=== PATIENT | female | born 1950 | race Caucasian/White ===

== ENCOUNTER 2020-08-22 17:42 | Inpatient (IN) | payer MEDICARE, OTHER ==
[~2020-08-22] VITALS: Ht 162.6 cm; Wt 113.9 kg
--- NOTE | 2020-08-22 17:30 | NUR ---
received by to room 1114a.o2 on at 2 l/nc.oriented to room and surroundings.cl in reach.
--- NOTE | 2020-08-22 20:00 | NUR ---
ADMIT FOR PHYSICAL REHAB AND SERVICES OF DR EDWARDS. AWAKE AND ALERT. RESPIRATIONS UNLABORED. O2/3L ON PER NASAL CANNULA AND USES CPAP AT NIGHT. ORIENTED TO ROOM AND CALL LIGHT USES. VOICES UNDERSTANDING. CALL LIGHT IN REACH.
[2020-08-22 22:00] VITALS: BP 150/89
[2020-08-22 22:46] VITALS: BP 150/89; BMI 43.2
[2020-08-23] MEDS ORDERED: PROTONIX40 MG PO (03:14)
[2020-08-23] MEDS ORDERED: GUAIFENESI100 MG/5 M PO (03:16)
[2020-08-23] MEDS ORDERED: HUMALOG 30100 UNITS/ SQ (03:19)
[2020-08-23] MEDS ORDERED: PULMICORT0.5 MG/21 INH (03:21)
[2020-08-23] MEDS ORDERED: PERFOROMIS20 MCG/21 INH (03:21)
[2020-08-23] MEDS ORDERED: HUMALOG 30100 UNITS/ SC (03:21)
[2020-08-23] MEDS ORDERED: COZAAR100 MG PO (03:22)
[2020-08-23] MEDS ORDERED: CYMBALTA60 MG PO (03:22)
[2020-08-23] MEDS ORDERED: ASPIRIN81 MG PO (03:22)
[2020-08-23] MEDS ORDERED: DITROPAN XL 1010 MG PO (03:23)
[2020-08-23] MEDS ORDERED: LOVENOX40 MG/0.4 SC (03:24)
[2020-08-23] MEDS ORDERED: NAMENDA10 MG PO (03:24)
[2020-08-23] MEDS ORDERED: TESSALON PERLE100 MG PO (03:25)
[2020-08-23] MEDS ORDERED: TOPAMAX50 MG PO (03:26)
[2020-08-23] MEDS ORDERED: DONEPEZIL HCL10 MG (03:27)
[2020-08-23] MEDS ORDERED: LANTUS SOL100 UNIT/2 SC (03:27)
[2020-08-23] MEDS ORDERED: SINGULAIR10 MG PO (03:28)
[2020-08-23] MEDS ORDERED: NORVASC10 MG PO (03:28)
[2020-08-23] MEDS ORDERED: ZOCOR40 MG PO (03:29)
[2020-08-23] MEDS ORDERED: HYDRALAZINE HCL25 MG PO (03:31)
[2020-08-23] MEDS ORDERED: IPRAT-ALBUT 0.5-3 ML UPD (03:32)
[2020-08-23] MEDS ORDERED: BUTALB-APAP-CA1 EACH PO (03:32)
[2020-08-23] MEDS ORDERED: MIRALAX17 GM PO (03:33)
[2020-08-23] MEDS ORDERED: ACETAMINOPHEN325 MG PO (03:36)
[2020-08-23] MEDS ORDERED: ZOFRAN4 MG PO (03:37)
[2020-08-23] MEDS ORDERED: ULTRAM50 MG PO (03:37)
--- NOTE | 2020-08-23 05:17 | NUR ---
QUIET HOURS. NO ACUTE CHANGES IN CONDITION THIS SHIFT. RESTING IN BED WITH CPAP ON. NO DISTRESS NOTED. CALL LIGHT IN REACH.
[2020-08-23 06:58] LABS: BASOPHILS 0.4 % (0-2); EOSINOPHILS 2.3 % (0-7); HEMATOCRIT 43.2 % (36.0-48.0); HEMOGLOBIN 14.1 g/dL (12-16); MCH 30.9 pg (26.0-34.0); MCHC 32.5 g/dL (31.0-37.0); MEAN PLATELET VOLUME 9.5 fL (7.4-10.4); MONOCYTES 10.6 % (2-11); NEUTROPHILS 58.7 % (40-80); PLATELET COUNT 220 10x3/uL (130-400); RBC 4.55 10x6/uL (4.00-5.40); RDW 14.1 % (11.5-14.5); WBC 11.8 10x3/uL (4.8-10.8)
[2020-08-23 07:13] LABS: ANION GAP 11.8 mmol/L (8-16); CALCIUM 9.7 mg/dL (8.5-10.1); POTASSIUM - SERUM 3.8 mmol/L (3.5-5.1)
[2020-08-23 08:00] VITALS: BP 107/68
[2020-08-23 14:06] VITALS: Ht 162.6 cm; Wt 113.9 kg
--- NOTE | 2020-08-23 15:51 | NUR ---
PATIENT ADMITTS TO REHAB FROM [facility] IN [facility]. PCP IS DR. IWONA BROOKE, DME AT HOME IS A SHOWER CHAIR, WALKER AND HOME O2. DISCHARGE PLANS ARE FOR PATIEN TO RETURN TO HER HOME. WILL CONTINUE TO FOLLOW WITH PATIENT.
--- NOTE | 2020-08-23 20:00 | NUR ---
AWAKE AND ALERT. RESTING IN BED WITH RESPIRATIONS UNLABORED. O2/3L ON PER NASAL CANNULA. C/O HEADACHE. CALL LIGHT IN REACH.
--- NOTE | 2020-08-23 21:05 | NUR ---
MEDICATED FOR HEADACHE. SEE MAR.
[2020-08-23 21:13] VITALS: BP 140/60
--- NOTE | 2020-08-24 05:39 | NUR ---
RESTING IN BED. HAS SLEPT IN SHORT INTERVALS. MEDICATED FOR PAIN SEVERAL TIMES THIS SHIFT. MOSTLY FOR HEADACHE. RESPIRATIONS UNLABORED. CALL LIGHT IN REACH.
[2020-08-24 07:28] VITALS: BP 123/75
--- NOTE | 2020-08-24 16:27 | NUR ---
SITTING UP IN WC IN ROOM WATCHING TV. VISITING HER. SHE KEEPS HER BLE ELEVATED ON TRASHCAN. SHE C/O ALAN ALL THE TIME. SHE ASKS FOR PAIN MEDS ALL THE TIME AND CANT REMEMBER IF SHE HAD MEDS OR NOT. SHE STATES SHE HAS HAD A HEADACHE FOR 20 MONTHS AND CONFIRMS INFORMATION.
[2020-08-24 19:00] VITALS: BP 111/67
--- NOTE | 2020-08-24 19:28 | NUR ---
RESTING IN BED, NO DISTRESS NOTED, TALKING ON THE PHONE, CONT TO MONITOR SUGARS, O2 PER NC AT 3
--- NOTE | 2020-08-25 03:12 | NUR ---
PT C/O HEADACHE, REQUEST PAIN MEDS SOMETIMES EVERY HR, CONT TO MONITOR PAIN AND PASS ON TO NEXT SHIFT
[2020-08-25 06:37] VITALS: BP 134/70
--- NOTE | 2020-08-25 09:56 | NUR ---
SITTING UP IN WC IN ROOM WITH FEET PROPED UP. SHE OFTEN ASKS FOR PAIN MEDS FOR HER HEADACHE EVEN THOUGH SHE JUST HAD SOME MEDS. HER MEMORY IS POOR. CALL LIGHT IN REACH
[2020-08-25 19:00] VITALS: BP 129/72
--- NOTE | 2020-08-25 19:54 | NUR ---
UP TO BATHROOM, LIN WELL, C/O HEADACHE AND FOOT PAIN, CONT TO MONITOR SUGARS
[2020-08-26 07:08] LABS: BASOPHILS 0.5 % (0-2); HEMATOCRIT 38.3 % (36.0-48.0); HEMOGLOBIN 12.7 g/dL (12-16); MCH 31.2 pg (26.0-34.0); MCV 94.7 fL (80.0-100.0); MEAN PLATELET VOLUME 9.1 fL (7.4-10.4); MONOCYTES 8.9 % (2-11); NEUTROPHILS 64.6 % (40-80); PLATELET COUNT 193 10x3/uL (130-400); RBC 4.05 10x6/uL (4.00-5.40); RDW 13.8 % (11.5-14.5); WBC 8.3 10x3/uL (4.8-10.8)
[2020-08-26 07:38] LABS: ANION GAP 10.5 mmol/L (8-16); CALCIUM 9.1 mg/dL (8.5-10.1); CARBON DIOXIDE 28.3 mmol/L (21.0-32.0); POTASSIUM - SERUM 3.8 mmol/L (3.5-5.1)
[2020-08-26 08:10] VITALS: BP 130/61
--- NOTE | 2020-08-26 19:30 | NUR ---
AWAKE AND ALERT. RESTING IN BED WITH RESPIRATIONS UNLABORED. O2/3L PER NASAL CANNULA. CONTINUES TO C/O HEADACHES. WILL MEDICATED ORDERED. CPAP USE AT NIGHT. NO DISTRESS NOTED. CALL LIGHT IN REACH.
[2020-08-26 21:37] VITALS: BP 99/55
--- NOTE | 2020-08-27 05:06 | NUR ---
RESTLESS HOURS. UP MOST OF SHIFT C/O HEADACHE. WAS MEDICATED NUMEROUS TIMES. SEE MAR. DOESNT SEEM TO GET RELIEF FOR VERY LONG IF AT ALL. MESSAGE LEFT FOR DR EDWARDS ON ROUNDING SHEET.
[2020-08-27 07:59] VITALS: BP 150/75
--- NOTE | 2020-08-27 08:00 | NUR ---
SHIFT ASSMT COMPLETED.CL IN REACH.UP IN CHAIR FOR BREAKFAST.
--- NOTE | 2020-08-27 12:00 | NUR ---
SITTING UP IN CHAIR VISITING WITH AND EATING LUNCH.
--- NOTE | 2020-08-27 12:19 | RHP ---
PATIENT: WILIAN ESPINO MEDICAL RECORD: [id number] ACCOUNT: [id number] [id number] ADMISSION DATE: 08/22/20 REHABILITATION HISTORY AND PHYSICAL EXAMINATION POST ADMISSION PHYSICIAN EXAMINATION ADMITTING DIAGNOSIS: Acute respiratory failure. HISTORY OF PRESENT ILLNESS: The patient is a 70-year-old female patient who presented to the ED at [facility] with acute onset of shortness of breath. One week prior to her ED visit, she had seen her physician with milder symptoms and being given an inhaler and started on steroids. She did not improve. She was placed on BiPAP and transferred to the ICU where she was taken off BiPAP and placed on supplemental O2. She had problems with her creatinine and also glycemic control. Her admitting diagnosis was chronic respiratory failure secondary to acute exacerbation of asthma, acute kidney injury, leukocytosis. The patient was placed on IV antibiotics. Her white blood cell count trended down. She was continued on 4 liters of O2 via nasal cannula to keep her sat above 90%. She has been ambulating 10-20 feet with slow rajni. She complains of feeling weak, complains of migraine headaches. Physical therapy reports that she has had poor endurance, requires frequent rest breaks. She has got proximal muscle weakness. She has problems getting from sit to stand from the bed. Prior to this hospitalization, she was functionally independent at home with her ADLs. She lives with her spouse, daughter, son-in-law and teenage grandchildren. She utilizes home O2. She does use a rolling walker for long distances outside the home. She has some difficulty wearing shoes secondary to Charcot joint. Both her spouse and her family would like for her to be able to return back to her prior level of functioning. She has deficits in her ADLs at this time, poor safety awareness, poor endurance, poor energy conservation and problems with her oxygen. We will work on all these things and get her back home. COMORBIDITIES: Include acute kidney injury, asthma, migraines, respiratory failure and leukocytosis. PAST MEDICAL HISTORY: Significant for asthma, Charcot joint, dementia, diabetes, fibromyalgia, hypertension, hyperlipidemia, neuropathy, obstructive sleep apnea, morbid obesity. PAST SURGICAL HISTORY: Includes breast augmentation, cervical spine surgery, cholecystectomy, hip replacement, hysterectomy and knee replacement. ALLERGIES: No known drug allergies. CURRENT MEDICATIONS: Include Topamax 25 mg daily, Ditropan 10 mg daily, Namenda 20 mg daily, losartan 100 mg daily, enoxaparin 40 mg subq daily, Cymbalta 60 mg daily, aspirin chewable 81 mg daily, insulin 15 units before meals, Protonix 40 mg daily, simvastatin 40 mg daily, Singulair 10 mg at bedtime, Lantus 37 units at bedtime, Aricept 20 mg at bedtime, Tessalon Perles 100 mg t.i.d., amlodipine 10 mg at bedtime, Perforomist 20 mcg b.i.d., budesonide 0.5 mg b.i.d., on a glucose replacement protocol at this time, she has tramadol 50 mg every 6 hours p.r.n. pain, MiraLax 17 grams in 8 ounces of water daily as needed, Zofran 4 mg every 6 hours p.r.n., Robitussin liquid 10 mL every 6 hours, she is on Fioricet for headaches and Tylenol p.r.n. HABITS: No current alcohol or tobacco use. HISTORY AND PHYSICAL [id number] WILIAN ESPINO FAMILY HISTORY: Noncontributory. SOCIAL HISTORY: The patient hopes to return back home and get back to her prior level of functioning. REVIEW OF SYSTEMS: GENERAL: Does complain of weakness and fatigue. HEENT: Does complain of cold, cough, and congestion. CARDIOVASCULAR: Denies any chest pain. LUNGS: Does complain of shortness of breath with ambulation. Her pulse ox is 98%. PHYSICAL EXAMINATION: GENERAL: An obese female in no acute distress upon exam. HEENT: Normocephalic and atraumatic. Mucosa moist. NECK: Supple without no lymphadenopathy. LUNGS: Clear in upper encinas with decreased breath sounds in the bases. CARDIOVASCULAR: Regular rate and rhythm. ABDOMEN: Benign. EXTREMITIES: No clubbing, cyanosis or edema. NEUROLOGIC: She does have some diffuse weakness and also some mentation deficits. LABORATORY DATA: Her white count is 11.8, H&H of 14 and 43 and platelet count is 220. Her sodium is 140, potassium 3.8, BUN and creatinine of 23 and 1.0 and blood sugar is noted to be 125. ASSESSMENT: This is a 70-year-old female patient admitted to the rehab with a working diagnosis of acute respiratory failure and myopathy associated with it. The patient has potential to make improvement. We instituted the following multidisciplinary therapy including not limited to physical, occupational, respiratory, speech, nutritional services, prosthetics and orthotics. Given her complex medical condition and risks for more complications, rehabilitation services cannot be provided at a low level of care such as senior care facility. PLAN: 1. Admit to [facility] for inpatient therapy to include the following disciplines; A. Physical therapy to improve gait, all transfer skills and bed mobility to a modified independent level. B. Occupational therapy to improve activities of daily living. C. Case management to help with discharge planning and placement options. D. Nutrition to assist with nutritional needs. E. Rehabilitation nursing to assist in monitor the patient's underlying medical condition and to assist with any type of bowel or bladder management. 2. The patient's current medication and medical care will be continued. 3. She will be placed on standard fall precautions. 4. The patient's estimated length of stay is approximately 7-10 days. 5. Discuss this patient during care team staff meeting this week. TRANSINT:[id number] Voice Confirmation ID: [id number] DOCUMENT ID: [id number] HISTORY AND PHYSICAL [id number] WILIAN ESPINO notes whether there has been none or any medical/functional change since admission: - No change since preadmission screen. VIVEK attests patient continues to be appropriate for IRF: - Continues to be appropriate. KATHARINE EDWARDS MD at 1219 CC: [id number] DICTATION DATE: 08/23/20 0911 NURSE: 08/23/[address] [facility] [address] [id number]
--- NOTE | 2020-08-27 19:26 | NUR ---
AWAKE AND ALERT. UP TO BATHROOM. O2/3L ON PER NASAL CANNULA. NO DISTRESS NOTED.
[2020-08-27 19:36] VITALS: BP 119/68
--- NOTE | 2020-08-28 00:30 | NUR ---
UP TO BATHROOM AND BACK TO BED. MEDICATED FOR C/O HEADACHE PAIN. WILL MONITOR.
--- NOTE | 2020-08-28 05:23 | NUR ---
RESTING IN BED. HAS SLEPT IN SHORT INTERVALS. CONTINUES TO HAVE HEADACHE AND IS MEDICATED PRN ORDERED. SEE MAY. O2/3L ON PER NASAL CANNULA. CALL LIGHT IN REACH.
--- NOTE | 2020-08-28 06:32 | NUR ---
MILD NOSE BLEED. BLEEDING STOPPED WITH LIGHT PRESSURE. MOISTURE APPLIED TO NOSTRILS. WATER BOTTLE ADDED TO OXYGEN FOR HUMIDIFICATION.
[2020-08-28 07:38] VITALS: BP 129/63
--- NOTE | 2020-08-28 08:00 | NUR ---
SHIFT ASSMT COMPLETED.
[2020-08-28 09:45] LABS: BASOPHILS 1.2 % (0-2); EOSINOPHILS 4.7 % (0-7); HEMATOCRIT 38.5 % (36.0-48.0); HEMOGLOBIN 12.4 g/dL (12-16); LYMPHOCYTES 30.1 % (15-50); MCH 31.3 pg (26.0-34.0); MCHC 32.3 g/dL (31.0-37.0); MCV 96.7 fL (80.0-100.0); MEAN PLATELET VOLUME 9.5 fL (7.4-10.4); MONOCYTES 13.1 % (2-11); NEUTROPHILS 50.9 % (40-80); PLATELET COUNT 189 10x3/uL (130-400); RBC 3.98 10x6/uL (4.00-5.40); RDW 14.3 % (11.5-14.5); WBC 5.7 10x3/uL (4.8-10.8)
[2020-08-28 09:56] LABS: CALC OSMOLALITY 284 mosm/kg (275-300); CALCIUM 8.8 mg/dL (8.5-10.1); CARBON DIOXIDE 25.5 mmol/L (21.0-32.0); CHLORIDE - SERUM 106 mmol/L (98-107); CREATININE - SERUM 0.8 mg/dL (0.6-1.3); SODIUM 142 mmol/L (136-145); UREA NITROGEN 12 mg/dL (7-18); eGFR NON AFRICAN AMERICAN 75 mL/min (90-120)
[2020-08-28 09:57] LABS: GLUCOSE 130 mg/dL (74-106)
--- NOTE | 2020-08-28 16:21 | NUR ---
CARE TEAM MEETING: PATIENT SPOUSE ATTENDED THE MEETING. HER TENATIVE DC DATE IS 08/30/20. WILL CONTINUE TO FOLLOW WITH PATIENT AND WILL ASSIT WITH DC NEEDS.
[2020-08-28 20:18] VITALS: BP 112/66
--- NOTE | 2020-08-28 22:44 | NUR ---
RESTING IN BED, NO DISTRESS NOTED, CONT TO MONITOR SUGARS, EDEMA NOTED TO FEET AND L HAND, CONT TO MONITOR
--- NOTE | 2020-08-29 07:30 | NUR ---
PT RESTING IN BED WITH EYES OPEN CALL LIGHT IN REACH WILL MONITER
[2020-08-29 08:02] VITALS: BP 119/63
--- NOTE | 2020-08-29 14:57 | NUR ---
Nutrition reassessment: Diet order: Consistent CHO PO intake 75-100% of meals Labs: glucose running fair to good Wt: 251# +BM Pt with no changes from initial assessment on 08/23/20 Will continue to provide food choices, honor food peferences and monitor patients continued progress toward nutrition goals. Follow-up in 5-7 days.
--- NOTE | 2020-08-29 18:08 | NUR ---
PT RESTING IN BED WITH EYES OPEN CALL LIGHT IN REACH WILL MONITER
--- NOTE | 2020-08-29 19:03 | NUR ---
BEDSIDE REPORT COMPLETE. RECEIVED PT LYING IN BED ON RIGHT SIDE EYES CLOSED RESTING. EASILY AROUSED WITH STIMULI. C/O GENERALIZED RADIATING ACHING 5/10 PAIN. NORCO WAS ADMINISTERED PER EMAR 1820. PT IS ALERT AND ORIENTED X3 WITH FORGETFULNESS. PT IS CURRENTLY ON 3L/O2 VIA NC. NO IV NOTED. RIGHT HAND RED WITH +1 EDEMA. FEET EDEMA +2. ABD PURPLISH BRUISING NOTED. BED ALARM WAIVER SIGNED ON FILE. PT DENIES ANY NEEDS. CALL LIGHT WITHIN REACH. CPOC
[2020-08-29 22:08] VITALS: BP 114/56
--- NOTE | 2020-08-30 02:36 | NUR ---
PT LYING IN BED SUPINE EYES CLOSED RESTING. RR EVEN AND UNLABORED. CALL LIGHT WITHIN REACH.
--- NOTE | 2020-08-30 06:29 | NUR ---
PT SITTING UP IN W/C. ALERT AND ORIENTED X3. DENIES ANY NEEDS OR PAIN. NO DISTRESS NOTED. NO ACUTE CHANGES IN CONDITION THIS SHIFT. CALL LIGHT AND WATER WITHIN REACH.
[2020-08-30 07:13] LABS: BASOPHILS 1.1 % (0-2); EOSINOPHILS 4.8 % (0-7); HEMATOCRIT 37.1 % (36.0-48.0); HEMOGLOBIN 12.2 g/dL (12-16); LYMPHOCYTES 30.5 % (15-50); MCH 31.1 pg (26.0-34.0); MCHC 32.8 g/dL (31.0-37.0); MCV 94.8 fL (80.0-100.0); MEAN PLATELET VOLUME 9.6 fL (7.4-10.4); MONOCYTES 11.7 % (2-11); NEUTROPHILS 51.9 % (40-80); PLATELET COUNT 194 10x3/uL (130-400); RBC 3.91 10x6/uL (4.00-5.40); RDW 13.9 % (11.5-14.5); WBC 6.5 10x3/uL (4.8-10.8)
[2020-08-30 07:23] LABS: CARBON DIOXIDE 27.8 mmol/L (21.0-32.0); POTASSIUM - SERUM 3.8 mmol/L (3.5-5.1)
[2020-08-30 08:28] VITALS: BP 125/66
--- NOTE | 2020-08-30 08:59 | NUR ---
PATIENT DISCHARGING HOME TODAY WITH FAMILY. [facility] WILL RESUME THERAPY AT HOME. NO NEW DME NEEDED AT THIS TIME. CAROL SIGNED, IMM SERVED AND EXPLAINED, ONE GIVEN TO PATIENT AND ONE FILED IN CHART.DR. BROOKE/HECTOR PATEL 09/12/20 @ 10:30. DISCHARGE INSTRUCTIONS FAXED TO PCP, HOME HEALTH AND REVIEWED WITH PATIENT AND SPOUSE. NO COMPARE DATA REVIEWED , SPOUSE VOICED UNDERSTANDING.
--- NOTE | 2020-08-30 14:06 | NUR ---
PT DISCHARGED TO HOME VIA WHEELCHAIR WITH DISCHARGE SUMMARY AND MEDS REVIEWED WITH PT. MEDS CALLED TO [facility] [address]. PT TOLERATED WELL.
== END 2020-08-30 14:07 | disposition home health service (06) | DRG 91 ==
LOC: D.REHAB 17:42
PROVIDERS: ADMIT Emergency Medicine; ATTEND Emergency Medicine
DX: G72.9 Myopathy, unspecified (principal); J96.22 Acute and chronic respiratory failure with hypercapnia; N17.9 Acute kidney failure, unspecified; J45.909 Unspecified asthma, uncomplicated; I10 Essential (primary) hypertension; E78.5 Hyperlipidemia, unspecified; G47.33 Obstructive sleep apnea (adult) (pediatric); E66.9 Obesity, unspecified; F03.90 Unspecified dementia, unspecified severity, without behavioral disturbance, psychotic disturbance, mood disturbance, and anxiety; M79.7 Fibromyalgia; E11.40 Type 2 diabetes mellitus with diabetic neuropathy, unspecified